=== PATIENT | male | born 1985 | race Two or more races ===

== ENCOUNTER 2019-11-09 01:19 | Emergency (ER) | payer OTHER ==
[~2019-11-09] VITALS: Ht 175.3 cm; Wt 68.0 kg
[2019-11-09 01:27] VITALS: BP 118/81
--- NOTE | 2019-11-09 01:31 | NUR ---
dr loomis at the bed side
[2019-11-09] MEDS ORDERED: FLUORESCEIN SODIUM OPHTH 1 EA STRIP ONE (01:34)
[2019-11-09] MEDS ORDERED: ERYTHROMYCIN BASE OPHTH 3.5 GM TUBE ONE (01:40)
[2019-11-09] MEDS ORDERED: HYDROCODONE/APAP 5/325MG 1 EACH TABLET ONE (01:59)
[2019-11-09] MEDS ORDERED: HYDROCODONE/APAP 5/325MG 1 EACH TABLET PO ONE (02:00)
[2019-11-09] MEDS ORDERED: ERYTHROMYCIN BASE OPHTH 3.5 GM TUBE OP ONE (02:00)
[2019-11-09] MEDS ORDERED: FLUORESCEIN SODIUM OPHTH 1 EA STRIP OP ONE (02:00)
== END 2019-11-09 02:47 | disposition home or self-care (01) ==
LOC: ER 01:19
DX: S05.01XA Injury of conjunctiva and corneal abrasion without foreign body, right eye, initial encounter (principal); X58.XXXA Exposure to other specified factors, initial encounter; Y93.01 Activity, walking, marching and hiking; Y92.89 Other specified places as the place of occurrence of the external cause; Y99.8 Other external cause status